=== PATIENT | female | born 1965 | race Caucasian/White ===

== ENCOUNTER → 2018-05-15 | Outpatient (CLI) | payer OTHER ==
[~2018-05-15] MED LIST: AZIT-1 PO; FLUT16SP19 NS; FLUT1DIS28 IH; LACT1CAP6 PO; MULT1CAP59 PO; THYR30TA21 PO
--- NOTE | 2018-05-15 15:09 | RADIOLOGY IMAGING REPORT ---
FACILITY: [facility] [place] PATIENT NAME: MICHAEL ROSSI : [id number] MR: [id number] V: [id number] EXAM DATE: ORDERING PHYSICIAN: SANDRA MONTERROSO TECHNOLOGIST: Pari Degroot PROCEDURE:BILATERAL DIGITAL SCREENING MAMMOGRAM WITH CAD ASSISTED INTERPRETATION & 3D TOMOSYNTHESIS COMPARISON:Prior mammograms 05/12/17, 05/06/16, 05/05/15, 04/10/14, 04/04/13, 02/24/12. INDICATIONS:SCREENING FINDINGS: A small amount of fibroglandular tissue is seen throughout the breasts. The parenchymal pattern has remained stable allowing for difference in mammographic technique & patient positioning. There is no evidence of malignant appearing mass, malignant appearing calcifications or other secondary sign of malignancy in either breast. DIAGNOSTIC CATEGORY 1--NEGATIVE. RECOMMENDATIONS: ROUTINE MAMMOGRAM AND CLINICAL EVALUATION. IMPRESSION: BIRADS 1: Negative. No significant abnormality is seen. Dictated by: Inessa Coles M.D. on 05/15/2018 at 10:15 Transcribed by: GIN on 05/15/2018 at 10:38 Approved by: Inessa Coles M.D. on 05/15/2018 at 15:07 [facility]
== END ==
LOC: MAMO 01:27
PROVIDERS: ATTEND Obstetrics & Gynecology
DX: Z12.31 Encounter for screening mammogram for malignant neoplasm of breast (principal)
CPT/HCPCS: 77063; 77067

== ENCOUNTER → 2019-06-10 | Outpatient (CLI) | payer OTHER ==
[~2019-06-10] MED LIST changes: +ESTR0.62 PO
--- NOTE | 2019-06-10 15:49 | RADIOLOGY IMAGING REPORT ---
FACILITY: [facility] PATIENT NAME: MICHAEL ROSSI : [id number] MR: [id number] V: [id number] EXAM DATE: [id number] ORDERING PHYSICIAN: WISAM COSME TECHNOLOGIST: Pari Degroot PROCEDURE: BILATERAL DIGITAL SCREENING MAMMOGRAM WITH CAD ASSISTED INTERPRETATION & 3D TOMOSYNTHESIS. REASON FOR STUDY: Screening. COMPARISON: 05/15/2018, 05/12/2017, 05/06/2016. VIEWS OBTAINED: 2D & 3D full field CC & MLO projections. BREAST DENSITY: Scattered fibroglandular densities. MAMMOGRAM FINDINGS: There is no dominant mass, suspicious cluster of microcalcifications or persistent areas of architectural distortion. IMPRESSION: BIRADS 1: Negative. DIAGNOSTIC CATEGORY 1--NEGATIVE. RECOMMENDATIONS: ROUTINE MAMMOGRAM AND CLINICAL EVALUATION. Dictated by: Hesham Laguna M.D. on 06/10/2019 at 15:33 Transcribed by: GIN on 06/10/2019 at 15:39 Approved by: Hesham Laguna M.D. on 06/10/2019 at 15:45 [facility]
== END ==
LOC: MAMO 01:03
PROVIDERS: ATTEND Nurse Practitioner Family
DX: Z12.31 Encounter for screening mammogram for malignant neoplasm of breast (principal); Z80.3 Family history of malignant neoplasm of breast
CPT/HCPCS: 77063; 77067